=== PATIENT | male | born 1975 | race Hispanic/Latino ===

== ENCOUNTER 2019-10-15 20:59 | Emergency (ER) | payer OTHER ==
[~2019-10-15] VITALS: Ht 175.3 cm; Wt 99.8 kg
[2019-10-15] MEDS ORDERED: KETOROLAC TROMETHAMINE 30 MG/ML VIAL IV ONE (21:11)
[2019-10-15] MEDS ORDERED: SODIUM CHLORIDE 0.9% 1000ML 1,000 ML IV STA (21:11)
--- NOTE | 2019-10-15 21:27 | NUR ---
Post void revealed 17 mL on bladder scanner
[2019-10-15 21:35] LABS: BASOPHILS # (AUTO) 0.1 (0.0-0.1); BASOPHILS % 0.4 % (0.0-1.0); EOSINOPHILS # (AUTO) 0.2 (0.0-0.4); EOSINOPHILS % 1.3 % (0.0-6.0); HEMATOCRIT 42.9 % (38.2-49.6); HEMOGLOBIN 15.1 g/dL (14.0-18.0); LYMPHOCYTES # (AUTO) 4.3 (1.0-3.2); LYMPHOCYTES % 31.3 % (18.0-39.1); MEAN CORPUSCULAR HEMOGLOBIN 28.7 pg (28-32); MEAN CORPUSCULAR HGB CONC 35.2 g/dL (31-35); MEAN CORPUSCULAR VOLUME 81.6 fL (81-99); MONOCYTES # (AUTO) 1.1 (0.2-0.8); MONOCYTES % 7.8 % (4.4-11.3); NEUTROPHILS # (AUTO) 8.1 (2.1-6.9); NEUTROPHILS % 58.8 % (38.7-80.0); PLATELET COUNT 237 x10e3/uL (140-360); RED BLOOD COUNT 5.26 x10e6/uL (4.3-5.7); RED CELL DISTRIBUTION WIDTH 12.5 % (11.7-14.4)
[2019-10-15 21:38] LABS: BILIRUBIN,URINE NEGATIVE (NEGATIVE); CLARITY,URINE SL CLOUDY (CLEAR); COLOR,URINE YELLOW (YELLOW); KETONES,URINE NEGATIVE (NEGATIVE); LEUKOCYTE ESTERASE ,URINE TRACE (NEGATIVE); NITRITE,URINE NEGATIVE (NEGATIVE); PROTEIN,URINE DIPSTICK NEGATIVE (NEGATIVE); URINE UROBILINOGEN 0.2 mg/dL (0.2 - 1)
[2019-10-15 21:46] LABS: ALANINE AMINOTRANSFERASE 40 IU/L (0-55); ALBUMIN/GLOBULIN RATIO 1.1 (0.8-2.0); ALKALINE PHOSPHATASE 79 IU/L (40-150); ANION GAP 13.9 mmol/L (8-16); BLOOD UREA NITROGEN 15 mg/dL (7-26); BUN/CREATININE RATIO 14 (6-25); CALCIUM 9.4 mg/dL (8.4-10.2); CARBON DIOXIDE 24 mmol/L (22-29); CHLORIDE 102 mmol/L (98-107); CREATININE, SERUM 1.06 mg/dL (0.72-1.25); EST GLOMERULAR FILTRATION RATE > 60 ML/MIN (60-); GLUCOSE 100 mg/dL (74-118); POTASSIUM 3.9 mmol/L (3.5-5.1); SODIUM 136 mmol/L (136-145)
[2019-10-15 22:02] LABS: BACTERIA,URINE MANY /HPF; EPITHELIAL CELLS,URINE FEW /LPF; RENAL EPITHELIAL CELLS,URINE MODERATE
[2019-10-15] MEDS ORDERED: CEFTRIAXONE SOD 1 GM/NS 50 ML 50 ML IV ONE (22:15)
--- NOTE | 2019-10-15 22:25 | Diagnostic Imaging Report ---
EXAM: CT Abdomen and Pelvis WITHOUT contrast INDICATION: Urinating blood, pain with urination, abdominal pain COMPARISON: None. TECHNIQUE: Abdomen and pelvis were scanned utilizing a multidetector helical scanner from the lung base to the pubic symphysis without administration of IV contrast. Absence of intravenous contrast decreases sensitivity for detection of focal lesions and vascular pathology. Coronal and sagittal reformations were obtained. Routine protocol was performed. IV CONTRAST: None ORAL CONTRAST: None COMPLICATIONS: None RADIATION DOSE: Total DLP: 654 mGy*cm Estimated effective dose: (DLP x 0.015 x size factor) mSv CTDIvol has been reviewed. It is below the limits set by the Radiation Protocol Committee (RPC). Dose modulation, iterative reconstruction, and/or weight based adjustment of the mA/kV was utilized to reduce the radiation dose to as low as reasonably achievable. FINDINGS: LINES and TUBES: None. LOWER THORAX: Unremarkable HEPATOBILIARY: Enlarged hypodense liver. No focal hepatic lesions. No biliary ductal dilation. GALLBLADDER: No radio-opaque stones or sludge. No wall thickening. SPLEEN: No splenomegaly. PANCREAS: No focal masses or ductal dilatation. ADRENALS: No adrenal nodules KIDNEYS/URETERS: No hydronephrosis. No cystic or solid mass lesions. No stones. GI TRACT: No abnormal distention, wall thickening, or evidence of bowel obstruction. Above normal colonic stool volume. Appendix is normal. PELVIC ORGANS/BLADDER: Unremarkable. LYMPH NODES: No lymphadenopathy. VESSELS: Unremarkable. PERITONEUM / RETROPERITONEUM: No free air or fluid. BONES: There are degenerative changes in the spine. SOFT TISSUES: There are fat containing inguinal hernias. There is a fat containing para-umbilical hernia. IMPRESSION: 1. Degree of colonic stool burden is suggestive of constipation. 2. Hepatomegaly with hepatic steatosis. Signed by: Som Arreaga DO on 10/15/2019 10:22 PM
[2019-10-15] MEDS ORDERED: FLOMAX0.4 MG PO (22:40)
[2019-10-15] MEDS ORDERED: KEFLEX500 MG PO (22:40)
[2019-10-15] MEDS ORDERED: PYRIDIUM100 MG PO (22:40)
--- NOTE | 2019-10-15 23:24 | Emergency Department Note ---
History of Present Illnes History of Present Illness Chief Complaint: Genitourinary History of Present Illness This is a 43 year old male . Chief Complaint Comment Patient c/o urinating blood and burning sensation when voiding. Patient denies pain at this time. No distress noted Historian: Patient Arrival Mode: Car Past Medical/Family History Physician Review I have reviewed the patient's past medical and family history. Any updates have been documented here. Past Medical History Recent Fever: No Clinical Suspicion of Infectio: No New/Unexplained Change in Ment: No Other Medical History: gout Past Surgical History: None Social History Smoking Cessation: Never Smoker Counseling Performed: No Alcohol Use: Social Any Illegal Drug Use: No TB Exposure/Symptoms: No Physically hurt or threatened: No Other Last Tetanus: unk Any Pre-Existing Lines (PICC,: No Is patient up to date on immun: No Last Flu: unk Last Pneumovax: unk Review of Systems Review of Systems Constitutional: no symptoms EENTM: no symptoms Cardiovascular: no symptoms Respiratory: no symptoms Gastrointestinal: no symptoms Genitourinary: as per HPI, dysuria, frequency, hematuria Musculoskeletal: no symptoms Neurological: no symptoms Psychological: no symptoms Endocrine: no symptoms Hematological/Lymphatic: no symptoms Review of other systems All other systems reviewed and negative. Physical Exam Related Data Allergies: Coded Allergies: No Known Allergies (Unverified , 10/15/19) Triage Vital Signs Vital Signs Date Time Temp Pulse Resp B/P (MAP) Pulse Ox O2 Delivery O2 Flow Rate FiO2 10/15/19 21:00 99.1 74 20 121/82 96 Vital signs reviewed: Yes Physical Exam CONSTITUTIONAL Constitutional: well-developed, well-nourished HENT HENT: normocephalic, atraumatic, oropharynx clear/moist, nose normal HENT L/R: left ext ear normal, right ext ear normal EYES Eyes: PERRL, conjunctivae normal NECK Neck: ROM normal PULMONARY Pulmonary: effort normal, breath sounds normal CARDIOVASCULAR Cardiovascular: regular rhythm, heart sounds normal, capillary refill normal, normal rate GASTROINTESTINAL Abdominal: soft, nontender, bowel sounds normal GENITOURINARY Genitourinary: exam deferred SKIN Skin: warm, dry MUSCULOSKELETAL Musculoskeletal: ROM normal, other (no flank pain ) NEUROLOGICAL Neurological: alert, oriented x 3, no gross motor or sensory deficits PSYCHOLOGICAL Psychological: mood/affect normal, judgement normal Results Laboratory Result Diagram: 10/15/19211910/15/192119 Laboratory Laboratory Tests Test 10/15/19 21:20 10/15/19 21:08 White Blood Count 13.74 x10e3/uL (4.8-10.8) Red Blood Count 5.26 x10e6/uL (4.3-5.7) Hemoglobin 15.1 g/dL (14.0-18.0) Hematocrit 42.9 % (38.2-49.6) Mean Corpuscular Volume 81.6 fL (81-99) Mean Corpuscular Hemoglobin 28.7 pg (28-32) Mean Corpuscular Hemoglobin Concent 35.2 g/dL (31-35) Red Cell Distribution Width 12.5 % (11.7-14.4) Platelet Count 237 x10e3/uL (140-360) Neutrophils (%) (Auto) 58.8 % (38.7-80.0) Lymphocytes (%) (Auto) 31.3 % (18.0-39.1) Monocytes (%) (Auto) 7.8 % (4.4-11.3) Eosinophils (%) (Auto) 1.3 % (0.0-6.0) Basophils (%) (Auto) 0.4 % (0.0-1.0) Neutrophils # (Auto) 8.1 (2.1-6.9) Lymphocytes # (Auto) 4.3 (1.0-3.2) Monocytes # (Auto) 1.1 (0.2-0.8) Eosinophils # (Auto) 0.2 (0.0-0.4) Basophils # (Auto) 0.1 (0.0-0.1) Absolute Immature Granulocyte (auto 0.06 x10e3/uL (0-0.1) Sodium Level 136 mmol/L (136-145) Potassium Level 3.9 mmol/L (3.5-5.1) Chloride Level 102 mmol/L (98-107) Carbon Dioxide Level 24 mmol/L (22-29) Anion Gap 13.9 mmol/L (8-16) Blood Urea Nitrogen 15 mg/dL (7-26) Creatinine 1.06 mg/dL (0.72-1.25) Estimat Glomerular Filtration Rate > 60 ML/MIN (60-) BUN/Creatinine Ratio 14 (6-25) Glucose Level 100 mg/dL (74-118) Calcium Level 9.4 mg/dL (8.4-10.2) Total Bilirubin 0.8 mg/dL (0.2-1.2) Aspartate Amino Transf (AST/SGOT) 32 IU/L (5-34) Alanine Aminotransferase (ALT/SGPT) 40 IU/L (0-55) Alkaline Phosphatase 79 IU/L (40-150) Total Protein 7.7 g/dL (6.5-8.1) Albumin 4.0 g/dL (3.5-5.0) Globulin 3.7 g/dL (2.3-3.5) Albumin/Globulin Ratio 1.1 (0.8-2.0) Urine Color Yellow (YELLOW) Urine Clarity Sl cloudy (CLEAR) Urine pH 7 (5 - 7) Urine Specific Index 1.025 (1.010-1.025) Urine Protein Negative (NEGATIVE) Urine Glucose (UA) Negative (NEGATIVE) Urine Ketones Negative (NEGATIVE) Urine Blood Moderate (NEGATIVE) Urine Nitrite Negative (NEGATIVE) Urine Bilirubin Negative (NEGATIVE) Urine Urobilinogen 0.2 mg/dL (0.2 - 1) Urine Leukocyte Esterase Trace (NEGATIVE) Urine RBC 6-10 /HPF (0-5) Urine WBC 6-10 /HPF (0-5) Urine Epithelial Cells Few /LPF (NONE) Urine Renal Epithelial Cells Moderate (NONE) Urine Bacteria Many /HPF (NONE) Lab results reviewed: Yes Imaging Imaging results reviewed: Yes Impressions KIDNEYS/URETERS: No hydronephrosis. No cystic or solid mass lesions. No stones. GI TRACT: No abnormal distention, wall thickening, or evidence of bowel obstruction. Above normal colonic stool volume. Appendix is normal. PELVIC ORGANS/BLADDER: Unremarkable. LYMPH NODES: No lymphadenopathy. VESSELS: Unremarkable. PERITONEUM / RETROPERITONEUM: No free air or fluid. BONES: There are degenerative changes in the spine. SOFT TISSUES: There are fat containing inguinal hernias. There is a fat containing para-umbilical hernia. IMPRESSION: 1. Degree of colonic stool burden is suggestive of constipation. 2. Hepatomegaly with hepatic steatosis. Critical Care Time Subsequent provider I assumed direction of critical care for this patient from another provider of my specialty. Assessment & Plan Reassessment Reassessment Pt re-evaluated at bed-side informed of normal CT exam Pt given one dose of antibitoics in the ED- d/leanna home. Urine culture sent, no signs of kidney stone Assessment & Plan Final Impression: (1) UTI (urinary tract infection) Assessment & Plan cbc, cmp ua, urine culture CT AP Depart Disposition: HOME, SELF-CARE Last Vital Signs Date Time Temp Pulse Resp B/P (MAP) Pulse Ox O2 Delivery O2 Flow Rate FiO2 10/15/19 21:27 73 16 118/77 98 10/15/19 21:00 99.1 Home Meds Active Scripts Phenazopyridine Hcl (PYRIDIUM) 100 Mg Tablet, 100 MG PO TID, #9 TAB Prov:TONEY MCDONOUGH, 10/15/19 Tamsulosin Hcl* (FLOMAX*) 0.4 Mg Cap, 0.4 MG PO DAILY, #30 CAP 0 Refills Prov:TONEY MCDONOUGH, 10/15/19 Cephalexin Monohydrate (KEFLEX) 500 Mg Capsule, 500 MG PO Q6HR, #40 TAB 0 Refills Prov:TONEY MCDONOUGH, 10/15/19 Medications in the ED Ketorolac Tromethamine 30 mg ONCE ONCE IV ; Start 10/15/19 at 21:11; Stop 10/15/19 at 21:33; Status DC Sodium Chloride 1,000 ml @ 0 mls/hr Q0M STAT IV Last administered on 10/15/19at 21:51; Admin Dose 999 MLS/HR; Start 10/15/19 at 21:11; Stop 10/15/19 at 21:13; Status DC Ceftriaxone Sodium 50 ml @ 100 mls/hr ONCE ONCE IV Last administered on 10/15/19at 22:19; Admin Dose 100 MLS/HR; Start 10/15/19 at 22:15; Stop 10/15/19 at 22:44; Status DC TONEY MCDONOUGH DO October 15, 2019 23:24
[2019-10-15 23:28] VITALS: BP 117/75
== END 2019-10-15 23:12 | disposition home or self-care (01) ==
LOC: ER 20:59
DX: R30.0 Dysuria (principal); R31.9 Hematuria, unspecified; N39.0 Urinary tract infection, site not specified
CPT/HCPCS: 36415; 74176; 80053; 81001; 85025; 99284; J0696; J7030; 87086

== ENCOUNTER → 2024-04-23 | Day surgery (SDC) | payer BC, OTHER ==
[~2024-04-23] MED LIST: FLOMAX0.4 MG PO; KEFLEX500 MG PO; LIDOCAINE HCL 2% LOCAL INJ 5 ML SDV VIAL INJ ONE; MAGNESIUM PO; PROPOFOL IV EMULSION 10 MG/ML 20 ML VIAL ONE; PROPOFOL IV EMULSION 50 ML IV ONE; PYRIDIUM100 MG PO
[2024-04-23] MEDS: LACTATED RINGER'S 1,000 ML ONE (12:16)
[2024-04-23 14:44] VITALS: TEMP 97.3
[2024-04-23 15:05] VITALS: BP 111/77; PULSE 65; RESP 18; O2SAT 99
== END | disposition home or self-care (01) ==
LOC: OR 12:06
PROVIDERS: ATTEND Internal Medicine Gastroenterology
DX: Z12.11 Encounter for screening for malignant neoplasm of colon (principal); K64.8 Other hemorrhoids; Z71.3 Dietary counseling and surveillance; Z71.89 Other specified counseling; E66.01 Morbid (severe) obesity due to excess calories; Z01.810 Encounter for preprocedural cardiovascular examination; Z68.33 Body mass index [BMI] 33.0-33.9, adult; Z80.0 Family history of malignant neoplasm of digestive organs
CPT/HCPCS: 45378; 93005; J2003; J2704 ×2; J7121